=== PATIENT | male | born 1950 | race Caucasian/White ===

== ENCOUNTER 2021-12-14 17:12 | Outpatient (CLI) | payer MEDICARE, BC, SELFPAY ==
[2021-12-14 12:01] LABS: Albumin* 4.2 g/dL (3.3-5.0); Chloride* 103 mmol/L (96-114); Potassium* 5.3 mmol/L (3.6-5.1); Sodium* 136 mmol/L (135-149)
[2021-12-14 12:03] LABS: Cholesterol* 172 mg/dL (90-199)
[2021-12-14 12:04] LABS: Alanine Aminotransferase* 22 U/L (4-50); Alkaline Phosphatase* 80 U/L (40-150); Aspartate Amino Transferase* 35 U/L (12-35); Bilirubin Total* 0.5 mg/dL (0.1-1.5); Blood Urea Nitrogen* 21 mg/dL (7-30); Carbon Dioxide* 23 mmol/L (20-32); Creatinine* 0.6 mg/dL (0.5-1.5); Estimated Glomerular Filt Rate 104 ml/min; Glucose* 102 mg/dL (60-115); Total Protein* 6.9 g/dL (6.0-8.3); Triglycerides* 56 mg/dL (40-149)
[2021-12-14 12:05] LABS: Calcium* 9.4 mg/dL (8.4-10.6); HDL Cholesterol* 75 mg/dL (>=40); LDL Cholesterol Calculated 86 mg/dL (<100)
[2021-12-14 12:35] LABS: PSA Screen* 1.52 ng/mL (0.10-4.00)
== END 2021-12-14 17:13 | disposition home or self-care (01) ==
PROVIDERS: PCP Internal Medicine; Visit Provider Internal Medicine
DX: Z00.00 Encounter for general adult medical examination without abnormal findings (principal); N52.9 Male erectile dysfunction, unspecified; Z12.5 Encounter for screening for malignant neoplasm of prostate; Z13.6 Encounter for screening for cardiovascular disorders
CPT/HCPCS: 80053; 80061; 84153

== ENCOUNTER 2021-12-21 08:30 | Outpatient (CLI) | payer MEDICARE, BC, SELFPAY ==
--- OUTSIDE RECORDS SUMMARY | 2021-12-21 08:33 | XMS_ITS | Clinical Summary ---
:1950 Author Organization [employer] [facility] [facility] [place] [address] Care Team Providers Name Role Phone Flynn Orlando MD Primary Care Provider Allergies No known active allergies Medications No known medications Active Problems Problem Noted Date Spondylolisthesis of lumbar region 02/13/2011 Spinal stenosis, lumbar 02/13/2011 Lumbar facet arthropathy 02/13/2011 Allergic rhinitis, cause unspecified Immunizations Name Administration Dates Next Due Td (Age >=7 Years) 04/12/2003 Family History Medical History Relation Name Comments Other Father lung disease- oc cup GI Disease Mother rupture bowel Relation Name Status Comments Father Mother Social History Tobacco Use Types Packs/Day Years Used Date Former Smoker Quit: 04/14/18 95 Smokeless Tobacco: Never Used Tobacco Cessation: Counseling Given: Yes Alcohol Use Standard Drinks/Week Comments Yes 5 (1 standard drink = 0.6 oz pure beer o r wine a few times per week alcohol) Sex Assigned at Date Recorded Not on file Obstetrics History Last Filed Vital Signs Vital Sign Reading Time Taken Comments Blood Pressure 133/85 01/13/2019 10: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 Pulse 64 01/13/2019 10:38 AM CDT Temperature 36.6 ??C (97.9 ??F) 06/08/2012 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 Respiratory Rate - - Oxygen Saturation 93% 01/13/2019 10:38 AM CDT Inhaled Oxygen Concentration - - Weight 82.3 kg (181 lb 6.4 oz) 01/13/2019 10:38 AM CDT Height 174 cm (5' 8.5) 11/10/2006 11:00 AM CDT Body Mass Index - - Plan of Treatment Health Maintenance Due Date Last Done Comments COVID-19 vaccine series (#1) 1950 Tdap 02/16/1963 Depression screening for age 12+ 1964 BMI (ht and wt on same day) for age 18+ 02/16/1970 Hepatitis C screening for age 18-79 02/16/1970 Zoster (shingles) series for age 50+ (1 of 2) 02/16/2002 Lipids for age 45-75 11/11/2011 11/10/2006 Tetanus booster 04/12/2013 04/12/2003 Colonoscopy through age 75 12/26/2016 12/26/2006 Medicare Wellness for age 65+ 02/16/2017 Pneumococcal series for age 65+ (1 - PCV) 02/16/2017 Influenza for age 65+ 12/13/2021 Results Not on filefrom Last 3 Months Insurance Payer Benefit Plan / Subscriber ID Effective Dates Phone Addre ss Type Group MEDICARE - PB MEDICARE PB [id number] 2017-Presen ATT N: CLAIMS USE ONLY ONLY t [address] [place] [address] [employer] [place] [place] [id number] 1997-Present [address] [address] [place] [address] (Work) [phone] Care Teams [address] Relationship Specialty Start Date End Date Flynn Orlando MD PCP - General 05/21/12
== END 2021-12-21 08:31 | disposition home or self-care (01) ==
LOC: OP CLINIC 08:31
PROVIDERS: PCP Internal Medicine; Visit Provider Internal Medicine
DX: Z12.11 Encounter for screening for malignant neoplasm of colon (principal); K64.4 Residual hemorrhoidal skin tags; K62.89 Other specified diseases of anus and rectum; K57.30 Diverticulosis of large intestine without perforation or abscess without bleeding; Z86.010 Personal history of colon polyps
CPT/HCPCS: 45380; 88305; J2250; J3010

== ENCOUNTER 2023-01-30 10:00 | Outpatient (CLI) | payer MEDICARE, BC, SELFPAY ==
--- OUTSIDE RECORDS SUMMARY | 2023-02-02 16:37 | XMS_ITS | Continuity of Care Document ---
Author Name Unknown Organization [facility] Address [address] [place] [address] [address] [place] [address] Phone Care Team Providers Care Bench Machine Operator Name Role Phone Sheldon Bhagat MD Unavailable Unavailable Allergies, Adverse Reactions, Alerts Substance Reaction Status Criticality No Known allergies Medications Medication Instructions Dosage Effective Dates (start - stop) Status Comments MELOXICAM (unknown strength) Not Available - Active IBUPROFEN (unknown strength) Not Available - Active Procedures Procedure Date Office/outpatient visit,[facility] 2010 X-ray exam of total spine Advance Directives Directive Yes / No Effective Date File Name Resuscitation Not Answered N/A N/A Life Support Not Answered N/A N/A Intubation Not Answered N/A N/A Antibiotics Not Answered N/A N/A IV Fluid Support Not Answered N/A N/A Tube Feed Not Answered N/A N/A Other Directive N/A N/A WARNING:The information contained in this section is historical and is provided for information only and does not constitute a legal document or any assurance that the information is still accurate. Please verify the information with the bolton of the legal document before using it for clinical purposes. Encounters Encounter Description Practice Location Reason(s) For Visit Diagnoses Date Provider Providers Copied on Encounter Office/outpat ient visit,[facility], [facility], [address] [place], [place] [address], [address], tel:[phone] [facility] - [facility] No Information 1 Olayinka Chung. [facility], [address] [place] [address], [address], [id number], . tel:[phone] Family History Family Member Type Diagnosis Age At Onset Sisters Problem (finding) Cancer Payers Payer name Insurance type Covered republican ID Sonu allen (s) [facility] [id number] Social History Type Description Quantity Date Captured Comments Alcohol Use Details Unknown Caffeine Use Details Unknown Tobacco Use Status No Information Smoking Status Former smoker Smoking Tobacco Use Details Cigarette: No Details Available Cigarette: No Details Available Sex Male Vital Signs Date / Time: Height Weight BMI Pulse Rate Blood Pressure Temperature Respiratory Rate Body Surface Area Head Circumference Head Circ. Percentile Wt./Reinaldo. Percentile BMI percentile Pulse Ox Inhaled Ox 1:05 PM 68.50 in 83.098 kg (183.20 lbs) 27.4 5 kg/m eter (2) 66 /min 107/68 mm[Hg] Chief Complaint And Reason For Visit No Information Reason For Referral Reason For Referral No Information History Of Present Illness Encounter Date Complaint History Of Prese nt Illness No Information Functional Status Date Functional Assessmen t No Information Instructions Date Instruction Additional Infor mation No Information Assessments Type Assessment Date No Information Patient Care Teams Name Effective Dates (start - stop) Status Members No Information
== END 2023-01-30 10:01 | disposition home or self-care (01) ==
LOC: NFLDREF 02-02 16:35
PROVIDERS: PCP Internal Medicine; Referring Provider Internal Medicine; Visit Provider Internal Medicine
DX: Z12.5 Encounter for screening for malignant neoplasm of prostate (principal); M54.50 Low back pain, unspecified; Z13.6 Encounter for screening for cardiovascular disorders; N52.9 Male erectile dysfunction, unspecified
CPT/HCPCS: 80053; 80061; 84153

== ENCOUNTER 2024-02-10 09:24 | Outpatient (CLI) | payer MEDICARE, BC, SELFPAY ==
--- OUTSIDE RECORDS SUMMARY | 2024-02-10 09:27 | XMS_ITS | Clinical Summary ---
Author Organization [employer] [facility] Address [place], [place] [address] Care Team Providers Care Architectural Representative Name Role Phone Flynn Orlando MD Primary Care Provider [phone] Allergies No known active allergies Medications No known medications Active Problems Problem Noted Date Diagnosed Date Spondylolisthesis of lumbar region 02/13/2011 Spinal stenosis, lumbar 02/13/2011 Lumbar facet arthropathy 02/13/2011 Allergic rhinitis, cause unspecified Immunizations Name Administration Dates Next Due Td (Age >=7 Years) 04/12/2003 Family History Medical History Relation Name Comments Other Father lung disease- o ccup GI Disease Mother rupture bowel Relation Name Status Comments Father Mother Social History Tobacco Use Types Packs/Day Years Used Date Smoking Tobacco: Former Cigarettes Q uit: 04/14/1994 Smokeless Tobacco: Never Tobacco Cessation:Counseling Given: Yes Alcohol Use Standard Drinks/Week Comments Yes 5 (1 standard drink = 0.6 oz pure alcohol) beer or wine a few times per week Sex and Gender Information Value Date Recorded Sex Assigned at Not on file Gender Identity Not on file Sexual Orientation Not on file Obstetrics History Last Filed Vital Signs Vital Sign Reading Time Taken Comments Blood Pressure 133/85 01/13/2019 10:38 AM CDT to wer Pulse 64 01/13/2019 10:38 AM CDT Temperature 36.6 ??C (97.9 ??F) 06/08/2012 7:53 AM CS T Respiratory Rate - - Oxygen Saturation 93% 01/13/2019 10:38 AM CDT Inhaled Oxygen Concentration - - Weight 82.3 kg (181 lb 6.4 oz) 01/13/2019 10:38 AM CDT Height 174 cm (5' 8.5) 11/10/2006 11:00 AM CDT Body Mass Index - - Plan of Treatment Health Maintenance Due Date Last Done Comments Tdap 02/16/1963 Depression screening for age 12+ 1964 BMI (ht and wt on same day) for age 18+ 02/16/1970 Hepatitis C screening for age 18-79 02/16/1970 Zoster (shingles) series for age 50+ (1 of 2) 02/17/20 02 Lipids for age 45-75 11/11/2011 11/10/2006 Tetanus booster 04/12/2013 04/12/2003 Colonoscopy through age 75 12/26/2016 12/26/2006 Medicare Wellness for age 65+ 02/16/2017 Pneumococcal series for age 65+ (1 of 1 - PCV) 017 COVID-19 vaccine series ( - 2023-25 season) 4 Influenza for age 65+ 12/14/2023 Procedures Procedure Name Priority Date/Time Associated Diagnosis Comments LIPID PANEL Routine 11/10/2006 11:58 AM CDT Hyperlipidemia from Last 3 Months or Most Recently Relevant to Health Maintenance Results * LIPID PANEL (11/10/2006 11:58 AM CDT) CHOLESTEROL,TOTAL 198 110 - 199 mg/dL [facility] TRIGLYCERIDES 57 <150 mg/dL [facility] HDL CHOLESTEROL 59 >40 mg/dL [facility] CHOL/HDL RATIO 3.36 <4.51 [facility] LDL CHOLESTEROL 128 <131 mg/dL [facility] PATIENT STATUS Fasting [facility] Blood specimen (specimen) BLOOD SPECIMEN / Unknown 11/10/2006 11:58 AM CDT 11/10/2006 11:54 AM CDT Juan Velasco MD CHEMISTRY [facility] [address] [place] [address] from Last 3 Months or Most Recently Relevant to Health Maintenance Care Teams Architectural Representative Relationship Specialty Start Date End Date Flynn Orlando MD PCP - General 05/21/12
--- OUTSIDE RECORDS SUMMARY | 2024-02-10 09:27 | XMS_ITS | Continuity of Care Document ---
Author Organization [facility] Address [address] [place] [address] [address] [place] [address] Phone Care Team Providers Care Filter Screen Cleaner Name Role Phone Sheldon Bhagat MD Unavailable Unavailable Allergies, Adverse Reactions, Alerts Substance Reaction Status Criticality No Known allergies Medications Medication Instructions Dosage Effective Dates (start - stop) Status Comments IBUPROFEN (unknown strength) Not Available - Active MELOXICAM (unknown strength) Not Available - Active Procedures Procedure Date Office/outpatient visit,[facility], [facility] 2010 X-ray exam of total spine Advance [...] Provider Providers Copied on Encounter Office/outpat ient visit,[facility], [facility], [address] [place], [place] [address], [address], tel:[phone] [facility] No Information Olayinka Chung. [facility], [address] [place] [address], [address], [id number], . tel:[phone] Family History Family Member Type Diagnosis Age At Onset Sisters Problem (finding) Cancer Payers Payer name Insurance type Covered democrat ID Sonu allen (s) [facility] [id number] Social History Type Description Quantity Date Captured [...]
== END 2024-02-10 09:25 | disposition home or self-care (01) ==
PROVIDERS: PCP Internal Medicine; Visit Provider Internal Medicine
DX: Z13.6 Encounter for screening for cardiovascular disorders (principal); Z12.5 Encounter for screening for malignant neoplasm of prostate; Z13.9 Encounter for screening, unspecified
CPT/HCPCS: 80053; 80061; G0103

== ENCOUNTER 2024-05-04 10:03 | Outpatient (CLI) | payer MEDICARE, BC, SELFPAY ==
--- NOTE | 2024-05-04 10:15 | CRLHL7_ITS ---
For Patients: As a result of the 21st Century Cures Act, medical imaging exams and procedure reports are released immediately into your electronic medical record. You may view this report before your referring provider. If you have questions, please contact your health care provider. INDICATION: Low back pain. COMPARISON: 01/21/2011. TECHNIQUE: Sagittal T1, T2, and STIR sequences. Axial T1 and T2 weighted sequences. FINDINGS: Stable lumbar scoliotic curvature convex the left with the apex at L2. In sagittal plane, grade 1 anterolisthesis of L4 on L5 measures approximately 8 mm with associated bilateral pars defects. Otherwise, normal alignment. No fractures. No vertebral body loss of height. No ligamentous injury. No suspicious osseous lesions. Normal conus terminates at L2. T11-12: Disc degeneration and diffuse disc bulge. No narrowing of the spinal canal. Mild narrowing of bilateral foramina. T12-L1: Disc degeneration diffuse disc bulge eccentric to the right. No narrowing of the spinal canal. Mild narrowing of the bilateral foramina. L1-2: Disc degeneration and loss disc height. Diffuse disc bulge eccentric to the right. No narrowing of spinal canal. Mild narrowing of the right neural foramen. No narrowing of the left neural foramen. L2-3: Disc degeneration diffuse disc bulge eccentric to the right. Moderate narrowing of spinal canal. Moderate severe right and mild left neural foraminal narrowing. Potential impingement of the exiting right L2 nerve root. Moderate facet arthropathy. L3-4: Disc degeneration. Posterior disc bulge. Mild Modic type 1 endplate changes. No narrowing of spinal canal. Mild narrowing of the left neural foramen. No narrowing of the right neural foramen. L4-5: Grade 1 anterolisthesis. Advanced disc degeneration loss disc height. Modic type 2 endplate changes. Unroofed posterior disc bulge. Combined with facet arthropathy, there is moderate severe narrowing of spinal canal. Impingement of the traversing L5 nerve roots. Oblique orientation of the bilateral foramina with moderate right and moderate severe left neural foraminal narrowing. Impingement of the exiting left L4 nerve root. Moderate facet arthropathy. L5-S1: Disc generation posted disc bulge. Superimposed left paracentral to foraminal disc herniation measures approximately 5 measures short axis. Moderate severe narrowing of spinal canal. Impingement of the traversing S1 nerve roots. Mild right and [id number] left neural foraminal narrowing. Mild facet arthropathy. Degenerative changes of the SI joints. IMPRESSION: 1. Stable lumbar scoliotic curvature convex to the left. 2. Grade 1 anterolisthesis of L4 on L5. Associated bilateral pars defects. 3. Otherwise normal alignment. No fractures 4. Interval progression of lumbar spondylosis 5. Mild narrowing of the bilateral neural foramina at T11-12 T12-L1 and L1-2. 6. At L2-3, moderate narrowing of the spinal canal. Moderate severe right neural foraminal narrowing. 7. At L3-4, mild narrowing of the left neural foramen 8. At L4-5, moderate to severe narrowing of the spinal canal. Impingement of the traversing L5 nerve roots. Moderate right and moderate to severe left neural foraminal narrowing. 9. At L5-S1, moderate to severe narrowing of the spinal canal. Impingement of the traversing S1 nerve roots. Dictated by Sabino Lopez MD @ 05/04/2024 12:15:18 PM (Electronically Signed)
== END 2024-05-04 10:04 | disposition home or self-care (01) ==
LOC: MRI 10:04
PROVIDERS: PCP Internal Medicine; Visit Provider Internal Medicine
DX: M54.50 Low back pain, unspecified (principal); M47.896 Other spondylosis, lumbar region; M51.26 Other intervertebral disc displacement, lumbar region; M51.27 Other intervertebral disc displacement, lumbosacral region
CPT/HCPCS: 72148

== ENCOUNTER 2025-02-23 09:27 | Outpatient (CLI) | payer MEDICARE, BC, SELFPAY | END 2025-02-23 09:28 | disposition home or self-care (01) | PROVIDERS: PCP Internal Medicine; Visit Provider Internal Medicine | DX: Z13.9 Encounter for screening, unspecified (principal) | CPT/HCPCS: 80053; 80061; G0103 ==